=== PATIENT | male | born 1980 | race Caucasian/White ===

== ENCOUNTER → 2021-09-14 09:34 | Outpatient (CLI) | payer OTHER, SELFPAY ==
--- NOTE | ~2021-09-14 | MR_ITS ---
EXAMINATION: MR abdomen wo/w con INDICATION: Hypodense nodule of the left hepatic lobe on outside hospital imaging TECHNIQUE: Coronal SSFSE ARC, WATER:coronal LAVA-FLEX, Coronal 2D FIESTA FatSat, Axial SSFSE BH ARC, Axial 3D DualEcho BH, Axial SSFSE-IR, Axial DWI b=500, Axial 2D FIESTA FatSat, pre and dynamic postco ntrast Axial LAVA ARC, postcontrast Coronal In and Opposed phase LAVA FLEX COMPARISON: None available CONTRAST: Multihance, 18 cc FINDINGS: There is a 2.7 x 1.4 cm lesion in liver segment V which is slightly hypointense to liver on T1-weighted sequences and mildly T2 hyperintense. There is no abnormal enhancement after contrast ad ministration. The spleen, pancreas, gallbladder, and adrenal glands are normal. The kidneys are unrem arkable. A hemangioma is noted in the L2 vertebral body. There are no pathologically enlarged abdomin al lymph nodes. No dilated loops of bowel are identified. IMPRESSION: 1. Nonenhancing cystic lesion in liver segment V, possible proteinaceous cyst or sequela of prior inf ection or trauma. No suspicious liver lesion identified. Reviewed, dictated and finalized at location B. IMPRESSION: 1. Nonenhancing cystic lesion in liver segment V, possible proteinaceous cyst o r sequela of prior infection or trauma. No suspicious liver lesion identified.
[2021-09-14 10:00] LABS: Estimated Glomerular Filt Rate > 60
== END ==
PROVIDERS: PCP Family Medicine; Visit Provider Family Medicine
DX: K76.89 Other specified diseases of liver (principal)
CPT/HCPCS: 74183; A9577